=== PATIENT | female | born 1945 | race Caucasian/White ===

== ENCOUNTER → 2019-12-02 10:53 | Outpatient (BNVA) | payer MEDICARE, BC, SELFPAY | PROVIDERS: PCP Family Medicine; Visit Provider Internal Medicine Rheumatology | DX: M34.0 Progressive systemic sclerosis (principal); M19.90 Unspecified osteoarthritis, unspecified site; Z11.59 Encounter for screening for other viral diseases; Z79.899 Other long term (current) drug therapy; Z11.1 Encounter for screening for respiratory tuberculosis; R76.8 Other specified abnormal immunological findings in serum; I73.00 Raynaud's syndrome without gangrene; M88.9 Osteitis deformans of unspecified bone; M79.7 Fibromyalgia; D17.21 Benign lipomatous neoplasm of skin and subcutaneous tissue of right arm; R22.31 Localized swelling, mass and lump, right upper limb; Z72.89 Other problems related to lifestyle | CPT/HCPCS: 36415; 70250; 72040; 72170; 73130; 73630; 80076; 82306; 82565; 85025; 85651; 86140; 86480; 86704; 86803; 87340; 99204 ==

== ENCOUNTER → 2019-12-02 12:01 | Outpatient (BNVA) | payer MEDICARE, BC, SELFPAY | PROVIDERS: PCP Family Medicine; Visit Provider Internal Medicine Rheumatology | DX: M19.90 Unspecified osteoarthritis, unspecified site (principal); Z11.59 Encounter for screening for other viral diseases; Z79.899 Other long term (current) drug therapy; R76.8 Other specified abnormal immunological findings in serum; M34.0 Progressive systemic sclerosis; I73.00 Raynaud's syndrome without gangrene; M88.9 Osteitis deformans of unspecified bone; M79.7 Fibromyalgia; D17.21 Benign lipomatous neoplasm of skin and subcutaneous tissue of right arm; R22.31 Localized swelling, mass and lump, right upper limb; M79.89 Other specified soft tissue disorders; M89.49 Other hypertrophic osteoarthropathy, multiple sites; M87.841 Other osteonecrosis, right hand; M20.42 Other hammer toe(s) (acquired), left foot; M20.12 Hallux valgus (acquired), left foot; M20.11 Hallux valgus (acquired), right foot; M47.892 Other spondylosis, cervical region | CPT/HCPCS: 85025 ==

== ENCOUNTER 2019-12-02 12:42 | Outpatient (CLI) | payer MEDICARE, BC, SELFPAY ==
--- NOTE | 2019-12-02 12:54 | XR_ITS ---
WS: [id number] XR hand LT min 3V* [id number] REASON FOR EXAM: inflammatory arthritis FINDINGS: The phalanges, metatarsals carpals, and carpal bones are all normal. Line the ulna and radi us are normal. There is soft tissue swelling over the styloid process of the ulna and radius suggesting early rheuma toid arthritis. XR/XR hand LT min 3V* [id number] IMPRESSION: Soft tissue swelling over the styloid processes of the ulna and radius suggests rheumatoid arthritis.
--- NOTE | 2019-12-02 12:54 | XR_ITS ---
WS: [id number] XR foot LT min 3V* [id number] REASON FOR EXAM: inflammatory arthritis FINDINGS: There is evidence of previous bunionectomy of the first metatarsophalangeal junction multip le K wires and a plate are seen across the operative site. There is evidence of screws through the second, third, fourth phalanges from hammertoe fixation. The remaining metatarsals and tarsals are essentially normal. XR/XR foot LT min 3V* [id number] IMPRESSION: Tear of hallux valgus and hammertoe configurations with internal fixation.
--- NOTE | 2019-12-02 12:54 | XR_ITS ---
WS: [id number] XR hand RT min 3V* [id number] REASON FOR EXAM: inflammatory arthritis FINDINGS: The lunate shows a sclerotic reaction and it shows atrophy The remaining phalanges, metacarpals, carpals are normal. XR/XR hand RT min 3V* [id number] IMPRESSION: Osteonecrosis of the lunate.
--- NOTE | 2019-12-02 12:54 | XR_ITS ---
WS: [id number] XR foot RT min 3V* [id number] REASON FOR EXAM: inflammatory arthritis FINDINGS: A large hallux valgus is seen with subluxation of the proximal first phalanx from the first metatarsal. The remaining phalanges metatarsals and tarsals are normal. The calcaneus was normal. XR/XR foot RT min 3V* [id number] IMPRESSION: Prominent hallux valgus changes.
--- NOTE | 2019-12-02 12:54 | XR_ITS ---
WS: [id number] XR cervical spine 3V* [id number] REASON FOR EXAM: inflammatory arthritis FINDINGS: Loss of the disc spaces seen between C3 3 and C4 and C5. Posterior spurring is noted C4-C5- C6. There is evidence of anterior spurring C4-C5. The odontoid process is normal. The joints of Luschka show hypertrophic changes. XR/XR cervical spine 3V* [id number] IMPRESSION: Diffuse cervical spondylosis. Degenerated disc changes C3-4, C4-5.
--- NOTE | 2019-12-02 12:54 | XR_ITS ---
WS: [id number] XR pelvis 1-2V* 11041 REASON FOR EXAM: inflammatory arthritis FINDINGS: Sclerotic reactions are seen over the lateral aspects of both sacroiliac joint The sacroiliac joints were normal. The pubic symphysis show degenerate changes. The remaining ilium, ischium, and pubis are normal. XR/XR pelvis 1-2V* [id number] IMPRESSION: Osteoarthritic changes of the pubic symphysis. Sclerotic changes in the soft tissue overriding the lateral iliac crest bilater ally.
--- NOTE | 2019-12-02 12:54 | XR_ITS ---
WS: [id number] XR skull <4V [id number] REASON FOR EXAM: inflammatory arthritis FINDINGS: The right skull areas area shows marked thickening of the diploic spaces. A mottled appeara nce of this area is seen in the skull noted the left side of the skull is normal. The lesion involves the orbits also on the right side. 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 The cortex is thickened but a lesser density than the remainder of the skull. 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
== END 2019-12-02 12:43 | disposition home or self-care (01) ==
LOC: RADWPI 12:48
PROVIDERS: PCP Family Medicine; Visit Provider Internal Medicine Rheumatology
DX: M89.49 Other hypertrophic osteoarthropathy, multiple sites (principal); M79.89 Other specified soft tissue disorders; M87.841 Other osteonecrosis, right hand; M20.42 Other hammer toe(s) (acquired), left foot; M20.12 Hallux valgus (acquired), left foot; M20.11 Hallux valgus (acquired), right foot; M47.892 Other spondylosis, cervical region
CPT/HCPCS: 70250; 72040; 72170; 73130; 73630; 80076; 82306; 82565; 85651; 86140; 86480; 86704; 86803; 87340

== ENCOUNTER → 2020-04-02 14:14 | Outpatient (BNVA) | payer MEDICARE, BC, SELFPAY | PROVIDERS: PCP Family Medicine; Visit Provider Internal Medicine Rheumatology | DX: M34.0 Progressive systemic sclerosis (principal); I73.00 Raynaud's syndrome without gangrene; M88.9 Osteitis deformans of unspecified bone; M79.7 Fibromyalgia; Z79.899 Other long term (current) drug therapy | CPT/HCPCS: 81001; 99214 ==